=== PATIENT | male | born 1960 | race Caucasian/White ===

== ENCOUNTER → 2018-12-06 | Outpatient (CLI) | payer OTHER ==
[~2018-12-06] MED LIST: AMLO1CAP3 PO; AMLO1CAP6 PO; GABA300C10 PO; [UNRECOGNIZED DRUG - CODE] PO
== END | disposition home or self-care (01) ==
LOC: RAD 06:45
PROVIDERS: ATTEND Family Medicine
DX: I10 Essential (primary) hypertension (principal); R94.4 Abnormal results of kidney function studies
CPT/HCPCS: 93975

== ENCOUNTER 2019-03-16 10:42 | Outpatient (CLI) | payer OTHER | END 2019-03-16 23:59 | disposition home or self-care (01) | LOC: CFH 10:42 | PROVIDERS: ATTEND Specialist | DX: M48.07 Spinal stenosis, lumbosacral region (principal); M51.26 Other intervertebral disc displacement, lumbar region | CPT/HCPCS: 72148 ==

== ENCOUNTER 2019-12-11 07:22 | Outpatient (CLI) | payer OTHER ==
[2019-12-11 08:32] LABS: BASOPHILS # (AUTO) 0.03 x10^3/uL (0-0.1); BASOPHILS % (AUTO) 0 % (0-1); EOSINOPHILS # (AUTO) 0.15 x10^3/uL (0-0.4); EOSINOPHILS % (AUTO) 1 % (1-7); LYMPHOCYTES # (AUTO) 1.74 x10^3/uL (1-3.4); LYMPHOCYTES % (AUTO) 16 % (22-44); MD NO; MEAN CORPUSCULAR HGB CONC 34.1 g/dL (33.2-36.2); MEAN CORPUSCULAR VOLUME 87.9 fL (81-97); MEAN PLATELET VOLUME 8.9 fL (7.4-10.4); MONOCYTES # (AUTO) 0.65 x10^3/uL (0.2-0.8); MONOCYTES % (AUTO) 6 % (2-9); NEUTROPHILS # (AUTO) 8.03 x10^3/uL (1.8-6.8); NEUTROPHILS % (AUTO) 76 % (42-75); PLATELET COUNT 226 x10^3/uL (130-400); RED BLOOD COUNT 4.98 x10^6/uL (4.38-5.82); RED CELL DISTRIBUTION WIDTH 13.2 % (9.4-14.8)
[2019-12-11 08:41] LABS: ALANINE AMINOTRANSFERASE 45 U/L (12-78); ALBUMIN 3.9 g/dL (3.4-5.0); ANION GAP 8 mmol/L (5-15); CALCIUM 8.7 mg/dL (8.5-10.1); CHLORIDE 103 mmol/L (98-107); CHOLESTEROL, TOTAL 147 mg/dL (140-239); CREATININE 1.24 mg/dL (0.7-1.3)
[2019-12-11 08:51] LABS: ALKALINE PHOSPHATASE 87 U/L (45-117); BILIRUBIN,TOTAL 0.3 mg/dL (0.2-1.0); CHOL/HDL RATIO 4.3; HDL CHOL % 23 % (26-37); HDL CHOLESTEROL (DIRECT) 34 mg/dL (40-60); LDL CHOLESTEROL,CALCULATED 48 mg/dL (54-169); LDL/HDL RATIO 1.4 (0.5-3.0); PSA SCREEN 0.06 ng/mL (0.00-4.00); TOTAL PROTEIN 7.6 g/dL (6.4-8.2); TRIGLYCERIDES 326 mg/dL (50-200); VLDL CHOLESTEROL 65 mg/dL (0-25)
== END 2019-12-11 23:59 | disposition home or self-care (01) ==
LOC: LAB 07:22
PROVIDERS: ATTEND Family Medicine
DX: Z12.5 Encounter for screening for malignant neoplasm of prostate (principal); E11.9 Type 2 diabetes mellitus without complications; E78.5 Hyperlipidemia, unspecified
CPT/HCPCS: 36415; 80053; 80061; 82043; 83036; 84443; 85025; G0103

== ENCOUNTER 2020-03-05 10:13 | Outpatient (CLI) | payer OTHER | END 2020-03-05 23:59 | disposition home or self-care (01) | LOC: RAD 10:13 | PROVIDERS: ATTEND Family Medicine | DX: K44.9 Diaphragmatic hernia without obstruction or gangrene (principal); K21.9 Gastro-esophageal reflux disease without esophagitis; Z90.49 Acquired absence of other specified parts of digestive tract | CPT/HCPCS: 74240 ==

== ENCOUNTER 2020-04-04 20:28 | Inpatient (IN) | payer OTHER ==
[~2020-04-04] VITALS: Ht 177.8 cm; Wt 99.1 kg
[2020-04-04] MEDS ORDERED: DIPHENHYDRAMINE 50 MG/ML, 1ML ONE (20:40)
[2020-04-04] MEDS ORDERED: methylPREDNISolone SOD SUCC 125 MG/2 ML ONE (20:40)
[2020-04-04] MEDS ORDERED: FAMOTIDINE 20 MG/2 ML ONE (20:40)
[2020-04-04] MEDS ORDERED: EPINEPHRINE 1 MG/ML, 1ML ONE (20:40)
[2020-04-04] MEDS ORDERED: methylPREDNISolone SOD SUCC 125 MG/2 ML IVPush ONE (21:00)
[2020-04-04] MEDS ORDERED: DIPHENHYDRAMINE 50 MG/ML, 1ML IVPush ONE (21:00)
[2020-04-04] MEDS ORDERED: EPINEPHRINE 1 MG/ML, 1ML SQ ONE (21:00)
[2020-04-04] MEDS ORDERED: FAMOTIDINE 20 MG/2 ML IVPush ONE (21:00)
--- NOTE | 2020-04-04 21:04 | NUR ---
PT. ARRIVED TO ED WITH C/O RIGHT SIDE TONGUE/FACE/NECK SWELLING STARTING AT 1800. PT. REPORTS HE HAD EATEN AT IN&OUT AND TOOK HIS SC SHOT OF TRULICITY. PT. DENIES ANY KNOWN ALLERGIES AND HAS TAKEN TRULICITY BEFORE. IMMEDIALTY UPON ARRIVAL PT. WAS PLACED IN T4 AND ALL MONITORS WERE PLACED. IV STARTED. DR. HOUGH IN TO EVAL PT. AND DISCUSS POC. PT. RESPIRATIONS EVEN, NON-LABORED. ABLE TO MANAGE OWN SECRETIONS. LUNGS CLEAR IN ALL ADAMS. 2L O2 VIA NC PLACED PER DR. HOUGH VERBAL ORDER. PER DR. HOUGH EPI TO BE AVAILABLE BUT NOT TO ADMIN AT THIS TIME. PT. ABLE TO SPEAK BUT IT'S DIFFICULT R/T TONGUE SWELLING. SINUS TACH NOTED ON MONITOR. PT. HAS BEEN MEDICATED PER NOV AND DENIES NEEDS CURRENTLY. WILL CONTINUE TO CLOSELY MONITOR PT.
--- NOTE | 2020-04-04 21:16 | NUR ---
PT. RESTING ON GURNEY WITH NO DISTRESS NOTED. SWELLING APPEARS UNCHANGED; PT. REPORTS HE FEELS THE SWELLING IS GETTING BETTER. PT. IS ABLE TO SPEAK AND DENIES ANY PAIN.
--- NOTE | 2020-04-04 21:41 | NUR ---
DR. HOUGH BACK IN TO DISCUSS PLAN FOR ADMISSION WITH PT. PT. CONDITION REMAINS UNCHANGED.
[2020-04-04] MEDS ORDERED: DULO30CA2 PO (21:45)
[2020-04-04] MEDS ORDERED: HYDR-3245 PO (21:45)
[2020-04-04] MEDS ORDERED: AMLO1CAP3 PO (21:45)
[2020-04-04] MEDS ORDERED: ATOR10TA PO (21:45)
[2020-04-04] MEDS ORDERED: METF1000 PO (21:45)
[2020-04-04] MEDS ORDERED: GABA600T7 PO (21:45)
--- NOTE | 2020-04-04 22:17 | NUR ---
PT. RESTING ON GURNEY WITH EYES CLOSED. RESPIRATIONS REMAIN EVEN AND NON-LABORED. NO CHANGE IN CONDITION. ALL MONITORS REMAIN IN PLACE. ALL SAFETY MEASURES OBSERVED.
[2020-04-04 22:55] LABS: BASOPHILS # (AUTO) 0.05 x10^3/uL (0-0.1); BASOPHILS % (AUTO) 0 % (0-1); EOSINOPHILS # (AUTO) 0.08 x10^3/uL (0-0.4); EOSINOPHILS % (AUTO) 1 % (1-7); LYMPHOCYTES # (AUTO) 2.37 x10^3/uL (1-3.4); LYMPHOCYTES % (AUTO) 16 % (22-44); MD NO; MEAN CORPUSCULAR HEMOGLOBIN 30.6 pg (27.5-34.5); MEAN CORPUSCULAR HGB CONC 33.6 g/dL (33.2-36.2); MEAN PLATELET VOLUME 10.3 fL (7.4-10.4); MONOCYTES # (AUTO) 0.83 x10^3/uL (0.2-0.8); MONOCYTES % (AUTO) 5 % (2-9); NEUTROPHILS # (AUTO) 11.97 x10^3/uL (1.8-6.8); NEUTROPHILS % (AUTO) 78 % (42-75); PLATELET COUNT 291 x10^3/uL (130-400); RED BLOOD COUNT 4.79 x10^6/uL (4.38-5.82); RED CELL DISTRIBUTION WIDTH 14.1 % (9.4-14.8)
[2020-04-04] MEDS ORDERED: morphine SULFATE 10 MG/ML, 1ML IVPush PRN (23:00)
[2020-04-04] MEDS ORDERED: hydrALAzine 20 MG/ML, 1ML IVPush PRN (23:00)
[2020-04-04] MEDS ORDERED: ONDANSETRON 2MG/ML, 2ML IVPush PRN (23:00)
[2020-04-04] MEDS ORDERED: LACTATED RINGERS 1,000 ML IV SCH (23:00)
[2020-04-04 23:02] LABS: ALANINE AMINOTRANSFERASE 27 U/L (12-78); ANION GAP 9 mmol/L (5-15); CALCIUM 9.4 mg/dL (8.5-10.1); CHLORIDE 106 mmol/L (98-107); CREATININE 1.51 mg/dL (0.7-1.3)
[2020-04-04] MEDS: DIPHENHYDRAMINE 50 MG/ML, 1ML IVPush SCH (23:07)
[2020-04-04] MEDS: methylPREDNISolone SOD SUCC 125 MG/2 ML IVPush SCH (23:07)
[2020-04-04 23:12] LABS: ALKALINE PHOSPHATASE 77 U/L (45-117); BILIRUBIN,TOTAL 0.3 mg/dL (0.2-1.0); TOTAL PROTEIN 7.8 g/dL (6.4-8.2)
--- NOTE | 2020-04-04 23:16 | NUR ---
PT. RESTING ON GURNEY WITH EYES CLOSED. EVEN CHEST RISE/FALL. CONDITION REMAINS UNCHANGED. CT CALLED LABS ARE NOW BACK; PT. TO GO TO CT NEXT.
[2020-04-04] MEDS ORDERED: SODIUM CHLORIDE 0.9%, 500ML IVBOLUS ONE (23:30)
[2020-04-04] MEDS ORDERED: OMNIPAQUE 350 MG/ML, 100ML BOTTLE ONE (23:31)
--- NOTE | 2020-04-05 | NUR ---
PT. MOVED FROM T4 TO ED 18. REPORT TO VIELKA HERNANDEZ.
[2020-04-05] MEDS ORDERED: DIPHENHYDRAMINE 50 MG/ML, 1ML ONE ×2 (05:05→12:55)
[2020-04-05 05:07] LABS: MEAN CORPUSCULAR HEMOGLOBIN 30.6 pg (27.5-34.5); MEAN CORPUSCULAR HGB CONC 33.4 g/dL (33.2-36.2); MEAN CORPUSCULAR VOLUME 91.5 fL (81-97); MEAN PLATELET VOLUME 9.5 fL (7.4-10.4); PLATELET COUNT 274 x10^3/uL (130-400); RED BLOOD COUNT 4.64 x10^6/uL (4.38-5.82); RED CELL DISTRIBUTION WIDTH 13.9 % (9.4-14.8)
[2020-04-05] MEDS: DIPHENHYDRAMINE 50 MG/ML, 1ML IVPush SCH ×4 (05:10→23:14)
[2020-04-05 05:17] LABS: ALBUMIN 3.7 g/dL (3.4-5.0); ANION GAP 8 mmol/L (5-15); CALCIUM 9.3 mg/dL (8.5-10.1); CHLORIDE 107 mmol/L (98-107)
[2020-04-05 05:21] LABS: ALANINE AMINOTRANSFERASE 25 U/L (12-78); ALKALINE PHOSPHATASE 75 U/L (45-117); BILIRUBIN,TOTAL 0.5 mg/dL (0.2-1.0); CREATININE 1.47 mg/dL (0.7-1.3); TOTAL PROTEIN 7.5 g/dL (6.4-8.2)
[2020-04-05 05:34] LABS: MD YES
[2020-04-05 05:35] LABS: LYMPH#(MANUAL) 0.52 x10^3/uL (1-3.4); LYMPHS% (MANUAL) 3 % (22-44); MONOS#(MANUAL) 0.17 x10^3/uL (0.3-2.7); MONOS% (MANUAL) 1 % (2-9); SEGS% (MANUAL) 96 % (42-75)
[2020-04-05 05:36] LABS: <PLATELET ESTIMATE> ADEQUATE; <PLT MORPHOLOGY> NORMAL PLT MORPH; <RBC MORPHOLOGY> NORMAL
[2020-04-05] MEDS ORDERED: SODIUM CHLORIDE 0.9% 1,000 ML IV SCH (07:30)
[2020-04-05] MEDS ORDERED: FAMOTIDINE 20 MG TABLET ONE (08:34)
[2020-04-05] MEDS ORDERED: FAMOTIDINE 20 MG/2 ML IVPush ONE (09:00)
[2020-04-05] MEDS ORDERED: TEMPLATE NON-FORMULARY MED. (Gabapentin** 600 MG) PO SCH (09:00)
[2020-04-05] MEDS ORDERED: TEMPLATE NON-FORMULARY MED. (Metformin Hcl** (Glucophage**) 1,000 MG) PO SCH (09:00)
[2020-04-05] MEDS ORDERED: FAMOTIDINE 20 MG/2 ML ONE (09:16)
[2020-04-05] MEDS: INSULIN LISPRO 100 UNITS/ML, PEN SQ-INSULIN SCH ×4 (09:28→20:13)
[2020-04-05] MEDS ORDERED: GABAPENTIN 300 MG CAPSULE ONE (09:35)
[2020-04-05] MEDS ORDERED: EPINEPHRINE 1 MG/ML, 1ML ONE (10:46)
[2020-04-05] MEDS ORDERED: EPINEPHRINE 1 MG/ML, 1ML SQ ONE (10:50)
--- NOTE | 2020-04-05 10:56 | NUR ---
PT REPORTS SAUL THE IS HAVING A HARD TIME SWALLOWING SECRETIONS, THAT THE SWELLING WAS WORSE. DR. MARC CORONEL CALLED. ORDER FOR EPI GIVEN PER ORDER.
--- NOTE | 2020-04-05 11:40 | NUR ---
PT SAID HE CAN SWALLOW SECRETIONS NOW. HR 119. LAB IN ROOM FOR BLOOD DRAW.
[2020-04-05 11:55] LABS: HCT (SEDRATE) 41.6 % (39.2-51.8)
--- NOTE | 2020-04-05 12:51 | NUR ---
Pt sleeping and no apparent distress. Snoring noted but no hypoxia at this time. Pt will be allowed to rest and then have meal after bg check.
[2020-04-05] MEDS ORDERED: methylPREDNISolone SOD SUCC 125 MG/2 ML ONE (12:54)
[2020-04-05] MEDS: methylPREDNISolone SOD SUCC 125 MG/2 ML IVPush SCH (13:02)
[2020-04-05] MEDS ORDERED: INSULIN LISPRO SINGLE DOSE, ER SQ-INSULIN ONE (13:06)
--- NOTE | 2020-04-05 13:15 | NUR ---
Pt medicated per emar, pt given insulin for blood glucose of 251. Meal tray ordered for patient.
[2020-04-05] MEDS ORDERED: MORPHINE SULFATE 4 MG/ML, 1ML ONE (13:50)
--- NOTE | 2020-04-05 14:04 | NUR ---
PT REPORTS THAT HE IS HAVING PAIN UNDER HIS TONGUE AND NECK. MEDS GIVEN PER ORDER. PAIN 11/23
[2020-04-05 15:11] VITALS: BP 135/80
[2020-04-05 20:00] VITALS: BP 124/75
[2020-04-05] MEDS: GABAPENTIN 300 MG CAPSULE PO SCH (20:12)
[2020-04-05] MEDS ORDERED: DULOXETINE 30 MG CAPSULE.DR PO SCH (21:00)
[2020-04-05] MEDS ORDERED: ATORVASTATIN 10 MG TABLET PO SCH (21:00)
[2020-04-06] MEDS: methylPREDNISolone SOD SUCC 125 MG/2 ML IVPush SCH (01:17)
[2020-04-06 01:18] VITALS: BP 109/61
[2020-04-06] MEDS: DIPHENHYDRAMINE 50 MG/ML, 1ML IVPush SCH ×2 (05:29→11:03)
[2020-04-06 06:49] VITALS: BP 137/82
[2020-04-06] MEDS: GABAPENTIN 300 MG CAPSULE PO SCH (08:42)
[2020-04-06] MEDS: INSULIN LISPRO 100 UNITS/ML, PEN SQ-INSULIN SCH ×2 (08:43→11:00)
[2020-04-06] MEDS ORDERED: AMLO-150 PO (10:42)
[2020-04-06] MEDS ORDERED: METH4TAB2 PO (10:42)
== END 2020-04-06 11:51 | disposition home or self-care (01) | DRG 916 ==
LOC: ED 22:05 → EDIP 23:10 → 4WST 04-05 15:12 → DCLOUNGE 04-06 11:39
PROVIDERS: ADMIT Family Medicine; ATTEND Hospitalist
DX: T78.3XXA Angioneurotic edema, initial encounter (principal); N17.9 Acute kidney failure, unspecified; J38.4 Edema of larynx; E11.22 Type 2 diabetes mellitus with diabetic chronic kidney disease; F32.9 Major depressive disorder, single episode, unspecified; F41.9 Anxiety disorder, unspecified; I12.9 Hypertensive chronic kidney disease with stage 1 through stage 4 chronic kidney disease, or unspecified chronic kidney disease; N18.9 Chronic kidney disease, unspecified; E11.42 Type 2 diabetes mellitus with diabetic polyneuropathy; E78.5 Hyperlipidemia, unspecified; T46.4X5A Adverse effect of angiotensin-converting-enzyme inhibitors, initial encounter; Z90.49 Acquired absence of other specified parts of digestive tract; Z79.4 Long term (current) use of insulin; Y92.89 Other specified places as the place of occurrence of the external cause
CPT/HCPCS: 36415; 96361; 96374; 96375; 99285; J3490; 70491; 80053; 82962; 83036; 84443; 85025; 85651; 86140; 86160; G0378; J0171; Q9967; J1200; J1815; J2270; J2930; J7030; J7040; J7120

== ENCOUNTER → 2020-04-23 | Outpatient (CLI) | payer OTHER ==
[~2020-04-23] MED LIST changes: +AMLO-150 PO; +ATOR10TA PO; +DULO30CA2 PO; +GABA600T7 PO; +HYDR-3245 PO; +METF1000 PO; +METH4TAB2 PO
== END | disposition home or self-care (01) ==
LOC: RAD 07:06
PROVIDERS: ATTEND Physician Assistant Surgical
DX: M25.552 Pain in left hip (principal)
CPT/HCPCS: 72190

== ENCOUNTER → 2021-04-01 | Outpatient (CLI) | payer OTHER ==
[~2021-04-01] MED LIST changes: -HYDR-3245 PO; +HYDR1TAB53 PO
== END | disposition home or self-care (01) ==
LOC: RAD 06:36
PROVIDERS: ATTEND Family Medicine
DX: K42.9 Umbilical hernia without obstruction or gangrene (principal); K86.2 Cyst of pancreas; R19.01 Right upper quadrant abdominal swelling, mass and lump; Z90.49 Acquired absence of other specified parts of digestive tract
CPT/HCPCS: 76700

== ENCOUNTER 2021-05-21 08:08 | Outpatient (CLI) | payer OTHER ==
[2021-05-21 09:27] LABS: FOLATE LEVEL 14.3 ng/mL (3.1-17.5)
== END 2021-05-21 23:59 | disposition home or self-care (01) ==
LOC: LAB 08:08
PROVIDERS: ATTEND Nurse Practitioner Family
DX: G62.9 Polyneuropathy, unspecified (principal)
CPT/HCPCS: 36415; 82175; 82300; 82306; 82390; 82607; 82746; 83655; 83825